=== PATIENT | female | born 1980 | race African-American/Black ===

== ENCOUNTER 2016-12-05 11:28 | Emergency (ER) | payer OTHER ==
[~2016-12-05] VITALS: Ht 162.6 cm; Wt 93.0 kg
[2016-12-05 12:44] VITALS: BP 141/101
[2016-12-05] MEDS ORDERED: NEOMYCIN-BACITRACIN-POLYM UNITDOSE PKG TOP OINT TOP ONE (13:00)
[2016-12-05] MEDS ORDERED: HYDROcodone-ACET 10/325MG TAB PO ONE (13:00)
== END 2016-12-05 13:27 | disposition home or self-care (01) ==
LOC: ER 11:28
DX: S00.83XA Contusion of other part of head, initial encounter (principal); S60.811A Abrasion of right wrist, initial encounter; Z88.8 Allergy status to other drugs, medicaments and biological substances; Y08.89XA Assault by other specified means, initial encounter; Y93.89 Activity, other specified; Y99.8 Other external cause status; Y92.89 Other specified places as the place of occurrence of the external cause
CPT/HCPCS: 70486

== ENCOUNTER 2024-04-24 12:38 | Emergency (ER) | payer MEDICAID, OTHER ==
[~2024-04-24] VITALS: Ht 162.6 cm; Wt 99.2 kg
[2024-04-24 13:28] VITALS: BP 129/72; PULSE 81; RESP 16; TEMP 98.2; O2SAT 98
[2024-04-24] MEDS ORDERED: NAPR-746 PO (13:50)
[2024-04-24] MEDS ORDERED: AUG875T PO (13:50)
--- NOTE | 2024-04-24 13:51 | ED.PDOC ---
Eye-HPI HPI Comments 43 year F possible abscess to the upper hard palate. c/o tenderness. reports it ruptured yesterday. ruptures yes Denies f/c/n/v/d Chief Complaint: Abscess Time Seen by MD: 13:13 Primary Care Provider: NONE Reviewed Notes: Nurses Notes, Medications, Allergies Allergies: Coded Allergies: Cephalexin (Verified Allergy, Severe, RASH, 12/05/16) Sulfamethoxazole w/Trimethoprim (Verified Allergy, Severe, RASH, 12/05/16) Home Meds Active Scripts Naproxen (Naproxen) 500 Mg Tab, 500 MG PO BIDPC for 14 Days, #28 TAB 0 Refills Prov:KIESHA GUALLPA ELECTROLYSIS INVESTIGATOR 04/24/24 Amoxicillin & Pot Clavulanate (AUGMENTIN TABLET) 875 Mg Tb, 875 MG PO BID for 7 Days, #14 TAB 0 Refills Prov:KIESHA GUALLPA ELECTROLYSIS INVESTIGATOR 04/24/24 Information Source: Patient Past Medical History PAST MEDICAL HISTORY: Denies Surgical History: Denies all surgeries 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 MMM. airway intact) Neck: Full Range of Motion, Non-Tender, Normal, Normal Inspection Respiratory: Chest Non-Tender, Lungs Clear, No Accessory Muscle Use, No Respiratory Distress, Normal Breath Sounds Cardiovascular: No Edema, No JVD, No Murmur, No Gallop, Normal Peripheral Pulses, Regular Rate/Rhythm Breast Exam: Deferred Gastrointestinal: No Organomegaly, Non Tender, No Pulsatile Mass, Normal Bowel Sounds, Soft Genitalia: Deferred Pelvic: Deferred Rectal: Deferred Extremities: No calf tenderness, Normal capillary refill, Normal inspection, Normal range of motion, Non-tender, No pedal edema Musculoskeletal : Apperance: Normal Neurologic: Alert, 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 Was a procedure done?: No EENT DIFF Eye: Other X-Ray, Labs, Meds, VS Vital Signs Date Time Temp Pulse Resp B/P (MAP) Pulse Ox O2 Delivery O2 Flow Rate FiO2 04/24/24 13:28 81 16 98 Room Air 04/24/24 13:28 98.2 81 16 129/72 (91) 98 98.2 04/24/24 12:50 98.2 81 16 129/72 (91) 98 98.2 X-Ray, Labs, Meds, VS Comment Indications for I and D at this time. Spontaneous rupture of abscess. Based on show decision-making patient agreed to empiric treatment and NSAIDs as needed for pain. Also recommended saltwater gargles and return precautions were given Time of 1ST Reevaluation: 13:00 Reevaluation 1ST: Improved Patient Education/Counseling: Diagnosis, Treatment Family Education/Counseling: Diagnosis, Treatment Departure 1 Departure Time of Disposition: 13:49 Impression: Primary Impression: Abscess Disposition: 01 HOME / SELF CARE / HOMELESS Condition: Stable e-Prescriptions Naproxen (Naproxen) 500 Mg Tab 500 MG PO BIDPC for 14 Days, #28 TAB 0 Refills Prov: KIESHA GUALLPA NP 04/24/24 Amoxicillin & Pot Clavulanate (AUGMENTIN TABLET) 875 Mg Tb 875 MG PO BID for 7 Days, #14 TAB 0 Refills Prov: KIESHA GUALLPA NP 04/24/24 Critical Care Note Critical Care Time?: No Stability Stability form required: No Heart Score Heart Score: Heart Score Response (Comments) Value History N/A 0 EKG N/A 0 Age N/A 0 Risk Factors N/A 0 Troponin N/A 0 Total 0 KIESHA GUALLPA NP Apr 24, 2024 13:51
== END 2024-04-24 14:01 | disposition home or self-care (01) ==
LOC: ER 12:38
DX: M27.2 Inflammatory conditions of jaws (principal); Z88.1 Allergy status to other antibiotic agents; Z88.2 Allergy status to sulfonamides